=== PATIENT | female | born 1975 | race Caucasian/White ===

== ENCOUNTER 2024-07-29 04:08 | Day surgery (SDC) | payer OTHER ==
[~2024-07-29] VITALS: Ht 177.8 cm; Wt 68.0 kg
[2024-07-29] VITALS (237 sets, daily range): BP systolic 88–136; BP diastolic 47–90
--- NOTE | 2024-07-29 07:00 | NUR ---
Arrival & Pre-treatment Patient arrived to the [facility] suite, identification and demographics confirmed. Patient to room 8, AAO, ambulatory, vitals obtained, ID/allergy/fall bands placed, changed into hospital gown, NELDA hose, and non-slip socks. Procedure and timeline explained for treatment and discharge. All questions answered and the patient presents no concerns at this time.
[2024-07-29] MEDS ORDERED: PANTOPRAZOLE SODIUM Sesquihydr 40 MG/TAB PO PRN (07:30)
[2024-07-29] MEDS ORDERED: FAMOTIDINE 20 MG/TAB PO PRN (07:30)
[2024-07-29] MEDS ORDERED: ALBUTEROL SULFATE 2.5 MG VIAL IN PRN (07:30)
[2024-07-29] MEDS ORDERED: diazePAM 5 MG/TAB PO PRN ×2 (07:30→08:30)
[2024-07-29] MEDS ORDERED: LACTATED RINGER'S 1,000 ML IV PRN ×3 (07:30→19:00)
[2024-07-29] MEDS ORDERED: cloNIDine HCL 0.1 MG/TAB PO PRN (07:30)
[2024-07-29] MEDS ORDERED: SCOPOLAMINE 1.5 MG DIS TD PRN (07:30)
[2024-07-29] MEDS ORDERED: CYANOCOBALAMIN 500 MCG/TAB ( B12) PO PRN (07:30)
--- NOTE | 2024-07-29 07:45 | NUR ---
telephoned with patient intake information including usage, dose, last dose/time taken and initial vital signs. Patient history and allergies reviewed with MD. Orders received for 5 + 5 PRN mg PO Valium and 0.1 mg PO Clonidine now. Will reassess per protocol in 1.5 hours and update MD with assessment and vitals. Patient medicated per MD orders. In addition to Clonidine and Valium, patient received 1000 mcg B12 PO, 20 mg Pepcid PO, and Scopolamine TD patch. Medication indication and education provided prior to administration.
[2024-07-29] MEDS ORDERED: ASCORBIC ACID 4,000 MG in SODIUM CHLORIDE 0.9% 1,000 ML IV SCH (08:00)
[2024-07-29 08:23] LABS: HEMATOCRIT 43.6 % (37.0-47.0); HEMOGLOBIN 14.9 g/dl (12.0-16.0); LYMPH% 22.1 % (15-41); MEAN CORPUSCULAR HGB 31.1 pG CALC (26.0-32.0); MEAN CORPUSCULAR HGB CONC 34.2 g/dL CAL (32.0-36.0); MONO% 5.7 % (2-13); NEUT# 2.9 thou/uL (2.00-7.15); NEUT% 72.2 % (42-76); RED BLOOD COUNT 4.79 mill/uL (4.20-5.60); RED CELL DISTRI WIDTH 12.2 % (11.5-15.5)
--- NOTE | 2024-07-29 09:35 | NUR ---
Patient resting comfortably in bed. Easily aroused, maintains focus, and drifts back to sleep. No signs of active withdrawal or distress noted at this time. Continuous SPO2, rhythm, and respiratory monitoring initiated. IVF @ 250 mL/HR, room air, VSS.
[2024-07-29] MEDS ORDERED: diazePAM 5 MG/TAB PO SCH (10:00)
[2024-07-29 10:02] LABS: ALBUMIN 4.5 g/dL (3.2-5.0); BILIRUBIN, TOTAL 0.8 mg/dL (0.02-1.3); CREATININE 0.8 mg/dL (0.5-1.0); POTASSIUM 3.9 mmol/l (3.5-5.1); TOTAL PROTEIN 7.2 g/dL (6.3-8.2)
[2024-07-29] MEDS ORDERED: cloNIDine HYDROCHLORIDE 100 MCG/ML 10 ML INJ IV PRN (10:05)
[2024-07-29] MEDS ORDERED: THIAMINE HCL 100 MG/ML 2ML VIAL IV PRN (10:05)
[2024-07-29] MEDS ORDERED: ONDANSETRON HCl 4 MG/2 ML SDV IV PRN ×3 (10:05→19:00)
[2024-07-29] MEDS ORDERED: SUCCINYLCHOLINE CHLORIDE 20 MG/ML 10ML VIAL IV PRN (10:05)
[2024-07-29] MEDS ORDERED: PROPOFOL 100 ML IV PRN (10:05)
[2024-07-29] MEDS ORDERED: cloNIDine HCL 0.1 MG/TAB VT PRN (10:05)
[2024-07-29] MEDS ORDERED: NALTREXONE HCL 50 MG/TAB VT PRN (10:05)
[2024-07-29] MEDS ORDERED: DiphenhydrAMINE HCL 50 MG/ML SDV IV PRN (10:05)
[2024-07-29] MEDS ORDERED: ROCURONIUM BROMIDE 10 MG/ML 5ML VIAL IV PRN (10:05)
[2024-07-29] MEDS ORDERED: PROPOFOL 10 MG/ML 100ML VIAL IV PRN (10:05)
[2024-07-29] MEDS ORDERED: LIDOCAINE HCL 1% (10MG/ML) 100 MG/10 ML MDV IV PRN (10:05)
[2024-07-29] MEDS ORDERED: MIDAZOLAM HCL 2 MG/2 ML VIAL IV PRN (10:05)
[2024-07-29] MEDS ORDERED: DEXAMETHASONE SODIUM PHOSPHATE PF 10 MG/ML SDV IV PRN ×2 (10:05→19:00)
[2024-07-29] MEDS ORDERED: OCTREOTIDE ACETATE 100 MCG/VIAL SDV SC PRN (10:05)
[2024-07-29] MEDS ORDERED: diazePAM 5 MG/TAB VT PRN (10:05)
[2024-07-29] MEDS ORDERED: MAGNESIUM SULFATE HEPTAHYDRATE 100 ML IV PRN (10:05)
[2024-07-29] MEDS ORDERED: STERILE WATER FOR IRRIGATION 1,000 ML BTL IR PRN (10:05)
[2024-07-29] MEDS ORDERED: LIDOCAINE HCL 1% (10MG/ML) 100 MG/10 ML MDV VT PRN ×2 (10:05)
[2024-07-29] MEDS ORDERED: POTASSIUM CHLORIDE 20 MEQ/100 ML BAG IV PRN (10:35)
--- NOTE | 2024-07-29 11:15 | NUR ---
Induction Note Patient to [facility] procedure room. Time out performed at 1115. Patient placed on monitors, Lucio hugger, bilateral wrist restraints applied for ET tube protection. Versed 5mg given IV push at 1130. Tourniquet applied to RIGHT arm Lidocaine 100mg given at 1131 IV push followed by Rocoronium 10mg at 1132 IV push and held for 90 seconds. Propofol bolus of 200mg given at 1134 IV push. Succinylcholine 100mg given IV push at 1135. Smooth intubation with 7.5 ETT. Positive CO2. Positive Auscultation for air exchange. Patient placed on ventilator for spontaneous ventilation. Placed on Propofol IV drip at 1136. OG inserted. Positive air on auscultation. Positive gastric content. Stomach washed at this time.
--- NOTE | 2024-07-29 12:00 | NUR ---
OG close note Stomach washed at this time. Naltrexone 50 mg with Clonidine 0.2 mg via OG tube. OG will be clamped for 45 minutes.
--- NOTE | 2024-07-29 12:30 | NUR ---
PRECEDEX GTT INITIATED AT THIS TIME.
--- NOTE | 2024-07-29 12:45 | NUR ---
OG open note OG open at this time. Gastric content draining into drainage bag. OG to drain for 45 minutes. Propofol will be titrated down based on patient.
--- NOTE | 2024-07-29 13:30 | NUR ---
OG close note Stomach washed at this time. Naltrexone 50 mg with Clonidine 0.1 mg via OG tube. OG will be clamped for 45 minutes.
[2024-07-29] MEDS ORDERED: NALTREXONE50 MG PO (14:15)
[2024-07-29] MEDS ORDERED: CLONIDINE0.1 MG PO (14:15)
[2024-07-29] MEDS ORDERED: KLONOPIN2 MG PO (14:16)
--- NOTE | 2024-07-29 15:00 | NUR ---
OG close note Stomach washed at this time. Naltrexone 50 mg with Clonidine 0.1 mg via OG tube. OG will be clamped for 45 minutes.
--- NOTE | 2024-07-29 16:30 | NUR ---
WAITING TIME / NO CLOSING No OG close at this time. Patient continues to react to treatment. Vitals, total Naltrexone & Clonidine, treatment duration and patient assessment discussed with MD. No orders for medication administration at this time. OG to be left open to gravity.
--- NOTE | 2024-07-29 17:30 | NUR ---
OG close note Stomach washed at this time. Naltrexone 12.5 mg with Clonidine 0.0 mg via OG tube. OG will be clamped for 30minutes.
--- NOTE | 2024-07-29 18:30 | NUR ---
Extubation note Closing medications given Benadryl 50mg IV push, Decadron 10mg IV push,Magnesium 4 grams IV, Zofran 8mg IV push, Octreotide 100mcg SC. Stomach washed out prior to extubation. Suctioned gastric content. OG removed. Patient extubated. Propofol Discontinued. Wrist restraints removed. Lucio hugger Removed. See ANR Moderate sedate recovery record for further notes and assessment.
[2024-07-29] MEDS ORDERED: PROMETHAZINE HCL 12.5 MG in SODIUM CHLORIDE 0.9% 50 ML IV PRN (19:00)
[2024-07-29] MEDS ORDERED: HALOPERIDOL LACTATE 5 MG/ML SDV IV PRN (19:00)
[2024-07-29] MEDS ORDERED: ACETAMINOPHEN 1,000 MG/100 ML VIAL IV PRN (19:00)
[2024-07-29] MEDS ORDERED: PROMETHAZINE HCL 25 MG in SODIUM CHLORIDE 0.9% 50 ML IV PRN (19:00)
[2024-07-29] MEDS ORDERED: LORazepam 2 MG/ML IV PRN ×2 (19:00)
[2024-07-29] MEDS ORDERED: KETOROLAC TROMETHAMINE 30 MG/ML SDV IV PRN (19:00)
[2024-07-29] MEDS ORDERED: ACETAMINOPHEN 500 MG TAB PO PRN (19:00)
--- NOTE | 2024-07-29 19:01 | NUR ---
SN SPOKE WITH PATIENTS FATHER AND UPDATE GIVEN.
--- NOTE | 2024-07-29 19:02 | NUR ---
TRANSER NOTE Patient transferred to medical-surgical unit. Report given to receiving nurse at bedside. Treatment, medications, I/O, IV access reviewed with RN. All questions answered. IVF to continue at 100 ml/hr, NC @ 2L, no adventitious breath sounds. Safety precautions in place, bed locked and in lowest position, call light in reach.
--- NOTE | 2024-07-29 20:00 | NUR ---
PT TRANSFERRED VIA BED TO 284 @1912. REPORT RECEIVED FROM ANR CARA HERNANDEZ AT BEDSIDE. PT PRESENTS RESTING WITH EYES CLOSED, NASAL CANNULA IN PLACE ON 2L O2. IV SITE APPEARS HEALTHY AND INTACT WITH FLUDIS RUNNING PER EMAR. NURSING ASSESSMENT COMPLETED. NO S/S OF DISTRESS. BED ALARM ON AND SAFETY PRECAUTIONS IN PLACE.
[2024-07-29] MEDS ORDERED: PATIENT' OWN MED CONTROLLED 1 EA DOSE IV PRN (21:00)
[2024-07-29] MEDS ORDERED: cloNIDine HCL 0.1 MG/TAB PO SCH (23:00)
[2024-07-29] MEDS ORDERED: clonazePAM 1 MG/TAB PO PRN (23:00)
--- NOTE | 2024-07-29 23:39 | NUR ---
[employer]OP[employer]OCIATE ASSISTED PT TO BSC, PT GAIT STEADY, ABLE TO KEEP EYES OPEN AND MAKE NEEDS KNOWN. PT IS A/OX2 TO SELF AND PLACE, REORIENTED ON TIME AND POST OP PROCEDURE. PT VOIDED WITHOUT DIFFICULTY. ASSISTED BACK INTO BED. PT DENIES ANY N/V/P AT THIS TIME. BED ALARM ON AND SAFETY PRECAUTIONS IN PLACE.
[2024-07-30 03:58] VITALS: BP 90/57
[2024-07-30] MEDS ORDERED: clonazePAM 1 MG/TAB PO PRN ×2 (04:00→08:00)
[2024-07-30] MEDS ORDERED: cloNIDine HCL 0.1 MG/TAB PO PRN (04:00)
--- NOTE | 2024-07-30 04:39 | NUR ---
PT LAYING IN BED, RESTING COMFORTABLY AT THIS TIME. NO S/S OF DISTRESS. DENIES ANY N/V/P. IV SITE APPEARS HEALTHY AND INTACT, FLUIDS RUNNING PER EMAR. BED ALARM ON AND SAFETY PRECAUTIONS IN PLACE.
[2024-07-30 05:50] LABS: BASO% 0.1 % (0-3); HEMATOCRIT 38.9 % (37.0-47.0); HEMOGLOBIN 13.4 g/dl (12.0-16.0); IMMATURE GRANULOCYTES 0.1 % (0.0-5.0); LYMPH% 7.1 % (15-41); MEAN CELL VOLUME 90.7 fL CALC (80.0-100.0); MEAN CORPUSCULAR HGB 31.2 pG CALC (26.0-32.0); MEAN CORPUSCULAR HGB CONC 34.4 g/dL CAL (32.0-36.0); MONO% 1.8 % (2-13); NEUT# 6.4 thou/uL (2.00-7.15); NEUT% 90.9 % (42-76); RED BLOOD COUNT 4.29 mill/uL (4.20-5.60)
[2024-07-30 06:11] LABS: ALBUMIN 3.6 g/dL (3.2-5.0); BILIRUBIN, TOTAL 0.8 mg/dL (0.02-1.3); CREATININE 0.7 mg/dL (0.5-1.0); MAGNESIUM 1.8 mg/dL (1.6-2.3); POTASSIUM 3.6 mmol/l (3.5-5.1); TOTAL PROTEIN 5.9 g/dL (6.3-8.2)
[2024-07-30] MEDS ORDERED: PANTOPRAZOLE SODIUM Sesquihydr 40 MG/TAB PO SCH (08:00)
[2024-07-30] MEDS ORDERED: NALTREXONE HCL 50 MG/TAB PO SCH (08:00)
[2024-07-30] MEDS ORDERED: cloNIDine HCL 0.1 MG/TAB PO SCH (08:00)
[2024-07-30] MEDS ORDERED: MAGNESIUM SULFATE HEPTAHYDRATE 50 ML IV SCH (08:00)
[2024-07-30] MEDS ORDERED: ACETAMINOPHEN 325 MG/TAB PO SCH (08:00)
[2024-07-30] MEDS ORDERED: POTASSIUM CHLORIDE 20 MEQ/TAB PO SCH (08:00)
[2024-07-30 08:13] VITALS: BP 110/64
--- NOTE | 2024-07-30 08:56 | NUR ---
patient resting in bed; a/o x3 when spoken to; room air; breathing unlabored and even; denied any pain; denied any n.v.d. at this time; iv site clean and intact running with LR @100; patient encouraged to eat breakfast; patient tolerated medication admin, no s.s of distress at this time; potassium and magnesium was under guidlines, replaced per guidelines; call light within reach,verablized understanding on how to use, personal items in [facility] locker;bed in lowest postion; bed alarm activated
[2024-07-30] MEDS ORDERED: MAGNESIUM OXIDE 400 MG/TAB PO PRN (09:00)
[2024-07-30] MEDS ORDERED: Cholecalciferol 2,000 UNIT/TAB PO PRN (09:00)
[2024-07-30] MEDS ORDERED: ACETAMINOPHEN 500 MG TAB PO PRN (09:00)
[2024-07-30] MEDS ORDERED: NICOTINE TRANSDERMAL 21 MG/PATCH TD SCH (09:00)
--- NOTE | 2024-07-30 12:15 | NUR ---
patient a/o x3; room air; breathing unlabored and even; denied any pain; denied any n/d/v at this time; iv site clean and intact saline locked;encouraged pateint to try to eat lunch, no s/s of distress or withdrwals; medication reviewed; call light within reach,verbalized understanding on how to use, personal items in room; [facility] bed alarm on
--- NOTE | 2024-07-30 15:15 | NUR ---
patient tolerated discharge medication with no issues
--- NOTE | 2024-07-30 15:52 | NUR ---
IV site discontinued, cath intact. No edema , no redness, voices no discomfort. Discharge instructions given. Patient verbalizes understanding of same. Discharged in stable condition via Ambulatory to Home with family. All belongings sent with pt.
== END 2024-07-30 15:43 | disposition home or self-care (01) | DRG 897 ==
LOC: MS2 04:08 → ANR 04:08
PROVIDERS: ATTEND Anesthesiology Critical Care Medicine
DX: F11.20 Opioid dependence, uncomplicated (principal)
CPT/HCPCS: J1100; J2354; J3475; J3490